=== PATIENT | female | born 1990 ===

== ENCOUNTER 2025-04-29 22:49 | Emergency (ER) | payer OTHER ==
[~2025-04-29] VITALS: Ht 165.1 cm; Wt 71.7 kg
[2025-04-29 22:51] VITALS: BP 133/79
[2025-04-29] MEDS ORDERED: SUMATRIPTAN SUCCINATE 6 MG/0.5 ML VIAL SQ ONE (23:22)
[2025-04-29] MEDS: SUMATRIPTAN SUCCINATE 6 MG/0.5 ML VIAL SQ ONE (23:29)
[2025-04-30 01:21] VITALS: BP 118/91; O2SAT 98
== END 2025-04-30 00:45 | disposition home or self-care (01) ==
LOC: ER 22:49
DX: G43.909 Migraine, unspecified, not intractable, without status migrainosus (principal); Z88.7 Allergy status to serum and vaccine; Z97.5 Presence of (intrauterine) contraceptive device
CPT/HCPCS: A4606; A4663; J3030